=== PATIENT | male | born 1960 | race Caucasian/White ===

== ENCOUNTER → 2016-11-26 | Outpatient (CLI) | payer BC ==
--- NOTE | 2016-11-26 22:52 | US ---
EXAMINATION TYPE: US renals and bladder DATE OF EXAM: 11/26/2016 8:54 AM COMPARISON: NONE CLINICAL HISTORY: 56-year-old male with R31.9 hematuria. TECHNIQUE: Multiple sonographic images of the kidneys and bladder were obtained. FINDINGS: EXAM MEASUREMENTS: Right Kidney: 9.9 x 4.9 x 5.4 cm Left Kidney: 10.4 x 5.6 x 4.4 cm No hydronephrosis on either side. No gross abnormality of the urine distended bladder. The left ureteral jet is seen. The right uretera l jet is not as clearly visualized. IMPRESSION: No hydronephrosis.
--- NOTE | 2016-11-27 07:00 | US ---
EXAMINATION TYPE: US prostate transrectal DATE OF EXAM: 11/26/2016 9:24 AM COMPARISON: NONE CLINICAL HISTORY: R31.9 hematuria. This examination was performed using the transrectal probe. EXAM MEASUREMENTS: Gland Size: 4.4 x 3.2 x 4.6 Volume: 33.7 Predicted PSA: 4.0 Actual PSA (if available):1.4 Seminal vesicle's appear large and thick. Patient had trouble tolerating exam. There is a hypoechoic area on the right measuring 0.8 x 0.7 x 1.0cm with peripheral vascularity. Area labeled seminal vesicles appears bulky and may reflect prostate base. Prostate gland is slightly enlarged in size. Some central zone calcification is present at mid aspect. Towards the base there i s vague ill-defined 8 x 7 x 10 mm hypoechoic area could reflect peripheral zone nodule. IMPRESSION: Prostate gland is slightly enlarged in size, suspicious hypoechoic area right periphera l zone prostatic base is noted . Consider imaging guided sampling at this level. Predicted PSA = volume x 0.12 ng/ml Calculated Volume = 0.5236 x L x W x H
== END | disposition home or self-care (01) ==
LOC: RADUSMAIN 08:14
PROVIDERS: ATTEND Family Medicine
DX: N40.0 Benign prostatic hyperplasia without lower urinary tract symptoms (principal); R31.9 Hematuria, unspecified
CPT/HCPCS: 76770; 76872

== ENCOUNTER → 2016-12-30 | Outpatient (CLI) | payer BC ==
[2016-12-30 18:22] LABS: Blood Urea Nitrogen 11 mg/dL (9-20); Non-African American GFR(MDRD) >60 (>60 ml/min/1.73 sqM)
--- NOTE | 2016-12-31 07:20 | CT ---
EXAMINATION TYPE: CT urogram wo/w con DATE OF EXAM: 12/30/2016 COMPARISON: NONE HISTORY: Patient complains of episode of gross hematuria and painful urination. CT DLP: 1758.1 mGycm Automated exposure control for dose reduction was used. CONTRAST: Performed with IV Contrast, patient injected with 100 mL of Omnipaque 300. FINDINGS: Visualized portions of the lungs are clear. There is no pleural or pericardial fluid. The h eart is not enlarged. Within the abdomen, there is a 2.3 cm low attenuating lesion in the dome of the left lobe of the live r. This does not fill in on delayed images. This does not have the appearance of a simple cyst. No ot her liver lesions are seen. The spleen and gallbladder are normal. Both adrenal glands are normal. The pancreas is unremarkable. Noncontrast views of the kidneys show no evidence of nephrolithiasis or hydronephrosis. Both kidneys demonstrate function and have a normal morphologic appearance. The renal collecting syst ems appear normal. No definite bladder lesion is seen. There is no significant retroperitoneal, iliac or inguinal adenopathy. There are scattered diverticula throughout the left side of the colon. There is no radiographic evide nce of diverticulitis. The appendix is normal. Small bowel loops are normal. There is no evidence of free fluid or free air. There is mild degenerative disc disease and hypertrophic spondylosis within the spine. No bony destru ctive lesion is seen. IMPRESSION: 1. WE HAVE NOT IDENTIFIED A CAUSE FOR THIS PATIENT'S GROSS HEMATURIA. 2. LESION WITHIN THE LIVER WARRANTS FURTHER INVESTIGATION. HEPATIC ULTRASOUND WOULD BE SUGGESTED. 3. MINIMAL, UNCOMPLICATED DIVERTICULOSIS OF THE LEFT SIDE OF THE COLON. 4. MILD DEGENERATIVE CHANGE WITHIN THE SPINE.
== END | disposition home or self-care (01) ==
LOC: RADCTMAIN 17:40
PROVIDERS: ATTEND Urology
DX: R31.0 Gross hematuria (principal)
CPT/HCPCS: 82565; 84520; 74178; 74400; Q9967